=== PATIENT | female | born 2000 | race American Indian/Alaskan Native ===

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

== ENCOUNTER 2018-01-08 04:39 | Emergency (ER) | payer SELFPAY ==
[2018-01-08 04:48] VITALS: BP 108/78
--- NOTE | 2018-01-08 05:14 | XRay Report ---
FINAL REPORT EXAM: XR ANKLE 3+V RT HISTORY: fall with pain OF RT ANKLE COMPARISONS: 11/02/2017 FINDINGS: Three views right ankle Periarticular soft tissue swelling. Intact ankle mortise. Chronic ossicle at the distal aspect of the lateral malleolus measures up to 6 millimeters and is unchanged. No acute fracture. IMPRESSION: Soft tissue swelling about the right ankle without evident fracture.
--- NOTE | 2018-01-08 06:54 | Emergency Department Report ---
ED Lower Extremity HPI - General Chief Complaint: Extremity Injury, Lower Stated Complaint: RT ANKLE PAIN Time Seen by Provider: 01/08/18 06:47 Source: patient Mode of arrival: Wheelchair Limitations: Physical Limitation - History of Present Illness Initial Comments: This is a 17-year-old female states she twisted her right ankle today jumping over a water puddle states either he states he immediately pain and swelling to right lateral ankle ankle patient was however able to ambulate into easy tonight pain is 6/10 aching and tingling pain is somewhat alleviated by elevation and is exacerbated by attempted weight bearing there is no deformity no bleeding no abrasions no lacerations Complaint: ankle injury Onset/Timin -: days(s) Injury: Ankle: Right (right lateral ankle ) Type of Injury: eversion Place: home Severity: moderate Severity scale (0 -10): 5 Improves With: nothing Worsens With: weight bearing, movement, palpation Context: fall, jumping Associated Symptoms: snap/pop sensation, swelling, tingling, able to partially bear weight - Related Data Previous Rx's Medication Instructions Recorded Last Taken Type Ibuprofen [Motrin 800 MG tab] 800 mg PO Q8HR #30 tablet 11/03/17 Unknown Rx Acetaminophen [Tylenol Extra 500 mg PO QID PRN #30 tablet 12/17/17 Unknown Rx Strength] Cyclobenzaprine [Flexeril] 10 mg PO TID PRN #30 tablet 01/08/18 Unknown Rx Menthol/Camphor [[place] 1 applicatio TP TID PRN #1 tube 01/08/18 Unknown Rx Ointment] Naproxen [Naprosyn TAB] 500 mg PO BID PRN #30 tablet 01/08/18 Unknown Rx Allergies Allergy/AdvReac Type Severity Reaction Status Date / Time No Known Allergies Allergy Verified 11/02/17 22:17 ED Review of Systems ROS: Stated complaint: RT ANKLE PAIN Other details as noted in HPI Constitutional: denies: chills, fever Eyes: denies: eye pain, eye discharge, vision change ENT: denies: ear pain, throat pain Respiratory: denies: cough, shortness of breath, wheezing Cardiovascular: denies: chest pain, palpitations Endocrine: no symptoms reported Gastrointestinal: denies: abdominal pain, nausea, diarrhea Genitourinary: denies: urgency, dysuria, discharge Musculoskeletal: joint swelling Skin: as per HPI Neurological: as per HPI Psychiatric: denies: anxiety, depression Hematological/Lymphatic: denies: easy bleeding, easy bruising ED Past Medical Hx - Past Medical History Previous Medical History?: No - Surgical History Past Surgical History?: Yes Additional Surgical History: Tonsils & adenoids - Social History Smoking Status: Never Smoker Substance Use Type: None - Medications Home Medications: Home Medications Medication Instructions Recorded Confirmed Last Taken Type Ibuprofen [Motrin 800 MG tab] 800 mg PO Q8HR #30 tablet 11/03/17 Unknown Rx Acetaminophen [Tylenol Extra 500 mg PO QID PRN #30 tablet 12/17/17 Unknown Rx Strength] Cyclobenzaprine [Flexeril] 10 mg PO TID PRN #30 tablet 01/08/18 Unknown Rx Menthol/Camphor [[place] 1 applicatio TP TID PRN #1 tube 01/08/18 Unknown Rx Ointment] Naproxen [Naprosyn TAB] 500 mg PO BID PRN #30 tablet 01/08/18 Unknown Rx ED Physical Exam - General Limitations: Physical Limitation General appearance: alert, in no apparent distress - Head Head exam: Present: atraumatic, normocephalic - Eye Eye exam: Present: normal appearance - ENT ENT exam: Present: mucous membranes moist - Neck Neck exam: Present: normal inspection - Respiratory Respiratory exam: Present: normal lung sounds bilaterally. Absent: respiratory distress - Cardiovascular Cardiovascular Exam: Present: regular rate, normal rhythm. Absent: systolic murmur, diastolic murmur, rubs, gallop - GI/Abdominal GI/Abdominal exam: Present: soft, normal bowel sounds - Rectal Rectal exam: Present: deferred - Extremities Exam Extremities exam: Present: full ROM, tenderness, normal capillary refill, joint swelling. Absent: calf tenderness - Expanded Lower Extremity Exam Right Hip exam: Present: full ROM Ankle exam: Present: tenderness, swelling, anterior draw sign. Absent: abrasion , laceration, ecchymosis, deformity, crepidus, dislocation, erythema Neuro vascular tendon exam: Present: no vascular compromise, pulse deficit, abnormal cap refill, motor deficit, sensory deficit, tendon deficit, abnormal 2- point discrimination, significant pain with passive ROM of distal joint Gait: Positive: observed and limited by pain - Back Exam Back exam: Present: normal inspection, full ROM, tenderness. Absent: CVA tenderness (R), CVA tenderness (L), muscle spasm, paraspinal tenderness, vertebral tenderness - Neurological Exam Neurological exam: Present: alert, oriented X3, CN II-XII intact, reflexes normal. Absent: motor sensory deficit - Psychiatric Psychiatric exam: Present: normal affect, normal mood ED Course Vital Signs 01/08/18 04:42 Temperature 97.6 F Pulse Rate 76 Respiratory 18 Rate Blood Pressure 108/78 O2 Sat by Pulse 99 Oximetry ED Lower Extremity MDM - Radiology Data Radiology results: report reviewed, image reviewed no fracture moderate soft tissue swelling right lateral - Medical Decision Making pt for ankle stirrup, crutches, plan :naproxen flexeril tiger balm cryotherapy, follow up with pcp in 2-3 days pt verbalized agreement and understanding of discharge plan Critical care attestation.: If time is entered above; I have spent that time in minutes in the direct care of this critically ill patient, excluding procedure time. ED Disposition Clinical Impression: Right ankle sprain Qualifiers: Encounter type: initial encounter Involved ligament of ankle: unspecified ligament Qualified Code(s): S93.401A - Sprain of unspecified ligament of right ankle, initial encounter Disposition: TO HOME OR SELFCARE Is pt being admited?: No Does the pt Need Aspirin: No Condition: Stable Instructions: Osteoarthritis (ED), Ankle Stirrup Splint (ED), Ankle Sprain (ED) , Ankle Exercises (GEN) Prescriptions: Cyclobenzaprine [Flexeril] 10 mg PO TID PRN #30 tablet PRN Reason: Muscle Spasm Menthol/Camphor [[place] Ointment] 1 applicatio TP TID PRN #1 tube PRN Reason: pain Naproxen [Naprosyn TAB] 500 mg PO BID PRN #30 tablet PRN Reason: pain Referrals: [facility] [Outside] - 3-5 Days Time of Disposition: 07:05
== END 2018-01-08 07:20 | disposition home or self-care (01) ==
LOC: ED 04:39
DX: S93.401A Sprain of unspecified ligament of right ankle, initial encounter (principal); Z90.89 Acquired absence of other organs; X50.1XXA Overexertion from prolonged static or awkward postures, initial encounter; Y93.89 Activity, other specified; Y92.009 Unspecified place in unspecified non-institutional (private) residence as the place of occurrence of the external cause; Y99.8 Other external cause status
CPT/HCPCS: 99284

== ENCOUNTER 2018-08-28 12:03 | Emergency (ER) | payer SELFPAY ==
[2018-08-28 13:11] VITALS: BP 131/65
--- NOTE | 2018-08-28 13:11 | Emergency Department Report ---
Chief Complaint: Urogenital-Female Stated Complaint: VAGINAL IRRIATATION Time Seen by Provider: 08/28/18 13:08 - HPI History of Present Illness: obgyn on 9 had std test no call from ob so she thinks neg tests took diflucan vag dc and tenderness 5months dont recall over 23 weeks no abd pain or back pain no cramping previous us ok g1 mse completed MSE screening note: Focused history and physical exam performed. Due to findings the following was ordered: ED Disposition for MSE Condition: Stable
[2018-08-28 13:35] LABS: Color,Urine Yellow (Yellow)
[2018-08-28 13:36] LABS: Bacteria,Urine 1+ /HPF (Negative); Bilirubin,Urine NEG (Negative); Blood,Urine NEG (Negative); Mucus,Urine 2+ /HPF; Urobilinogen,Urine < 2.0 mg/dL (<2.0)
--- NOTE | 2018-08-28 15:45 | Emergency Department Report ---
ED Female HPI - General Chief complaint: Urogenital-Female Stated complaint: VAGINAL IRRIATATION Time Seen by Provider: 08/28/18 13:08 Source: patient Mode of arrival: Ambulatory Limitations: No Limitations - History of Present Illness Initial comments: This is a 17-year-old t approximately 20 weeks gestationwho presents to ED complaining of vaginal irritation and vaginal discharge for the past 2-3 days. Patient states that she is having some burning with urination and some lesions vaginal area. Patient denies vaginal bleeding, fever, nausea vomiting, abdominal pain MD Complaint: vaginal discharge, possible STD Quality: cramping Are you Now?: Yes - Related Data Previous Rx's Medication Instructions Recorded Last Taken Type Ibuprofen [Motrin 800 MG tab] 800 mg PO Q8HR #30 tablet 11/03/17 Unknown Rx Acetaminophen [Tylenol Extra 500 mg PO QID PRN #30 tablet 12/17/17 Unknown Rx Strength] Cyclobenzaprine [Flexeril] 10 mg PO TID PRN #30 tablet 01/08/18 Unknown Rx Menthol/Camphor [[place] 1 applicatio TP TID PRN #1 tube 01/08/18 Unknown Rx Ointment] Naproxen [Naprosyn TAB] 500 mg PO BID PRN #30 tablet 01/08/18 Unknown Rx Acyclovir [Acyclovir Ointment] 1 applicatio TP 5XD #1 tube 08/28/18 Unknown Rx Acyclovir [Zovirax Tab] 800 mg PO TID #30 tab 08/28/18 Unknown Rx Nitrofurantoin [place]/M-Cryst 100 mg PO Q12HR #14 capsule 08/28/18 Unknown Rx [Macrobid CAP] Allergies Allergy/AdvReac Type Severity Reaction Status Date / Time No Known Allergies Allergy Verified 08/28/18 12:05 ED Review of Systems ROS: Stated complaint: VAGINAL IRRIATATION Other details as noted in HPI Comment: All other systems reviewed and negative ED Past Medical Hx - Surgical History Additional Surgical History: Tonsils & adenoids - Social History Smoking Status: Never Smoker Substance Use Type: None - Medications Home Medications: Home Medications Medication Instructions Recorded Confirmed Last Taken Type Ibuprofen [Motrin 800 MG tab] 800 mg PO Q8HR #30 tablet 11/03/17 Unknown Rx Acetaminophen [Tylenol Extra 500 mg PO QID PRN #30 tablet 12/17/17 Unknown Rx Strength] Cyclobenzaprine [Flexeril] 10 mg PO TID PRN #30 tablet 01/08/18 Unknown Rx Menthol/Camphor [[place] 1 applicatio TP TID PRN #1 tube 01/08/18 Unknown Rx Ointment] Naproxen [Naprosyn TAB] 500 mg PO BID PRN #30 tablet 01/08/18 Unknown Rx Acyclovir [Acyclovir Ointment] 1 applicatio TP 5XD #1 tube 08/28/18 Unknown Rx Acyclovir [Zovirax Tab] 800 mg PO TID #30 tab 08/28/18 Unknown Rx Nitrofurantoin [place]/M-Cryst 100 mg PO Q12HR #14 capsule 08/28/18 Unknown Rx [Macrobid CAP] ED Physical Exam - General Limitations: No Limitations General appearance: alert, in no apparent distress - Head Head exam: Present: atraumatic, normocephalic - Eye Eye exam: Present: normal appearance - ENT ENT exam: Present: mucous membranes moist - Neck Neck exam: Present: normal inspection - Respiratory Respiratory exam: Present: normal lung sounds bilaterally. Absent: respiratory distress - Cardiovascular Cardiovascular Exam: Present: regular rate, normal rhythm. Absent: systolic murmur, diastolic murmur, rubs, gallop - GI/Abdominal GI/Abdominal exam: Present: soft, normal bowel sounds - External exam: Present: lesions (consistent with herpes lesion, 3 in total lesion present, one on the labia, another 2 the vulva an). Absent: bleeding Speculum exam: Present: vaginal discharge, cervical discharge Bi-manual exam: Present: normal bi-manual exam. Absent: cervical motion tendernes, uterine enlargement - Extremities Exam Extremities exam: Present: normal inspection - Back Exam Back exam: Present: normal inspection - Neurological Exam Neurological exam: Present: alert, oriented X3 - Psychiatric Psychiatric exam: Present: normal affect, normal mood - Skin Skin exam: Present: warm, dry, intact, normal color. Absent: rash ED Course Vital Signs 08/28/18 13:09 Temperature 98.2 F Pulse Rate 89 Respiratory 20 Rate Blood Pressure 131/65 O2 Sat by Pulse 99 Oximetry ED Medical Decision Making - Medical Decision Making 17-year-old female presents with full vaginitis. Herpes lesions Urinalysis positive for urinary tract infection, wet prep negative Vital signs are normal patient is not acute distress I discussed all this findings with the patient. I discussed the patient follow up with her REEXAMINER within the next week. Patient is given prescription for ACyclovir topical and oral as well as antibiotics to treat a UTI. Patient understands instructions given.. Critical care attestation.: If time is entered above; I have spent that time in minutes in the direct care of this critically ill patient, excluding procedure time. 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 Take all your medications as you've been prescribed. If you have any worsening symptoms or develop new symptoms please return to ED immediately. Prescriptions: Acyclovir [Acyclovir Ointment] 1 applicatio TP 5XD #1 tube Nitrofurantoin [place]/M-Cryst [Macrobid CAP] 100 mg PO Q12HR #14 capsule Acyclovir [Zovirax Tab] 800 mg PO TID #30 tab Referrals: PRIMARY CARE,MD [Primary Care Provider] - 3-5 Days Forms: Accompanied Note, Work/School Release Form(ED) Time of Disposition: 17:03
== END 2018-08-28 17:11 | disposition home or self-care (01) ==
LOC: ED 12:03
DX: A60.09 Herpesviral infection of other urogenital tract (principal); N39.0 Urinary tract infection, site not specified; Z90.89 Acquired absence of other organs
CPT/HCPCS: 81001; 87210; 87591

== ENCOUNTER 2019-06-24 23:35 | Emergency (ER) | payer SELFPAY ==
[2019-06-25 01:57] VITALS: BP 137/76
[2019-06-25 02:31] LABS: Basophils % (Auto) 0.4 % (0.0-1.8); Eosinophils # (Auto) 0.2 K/mm3 (0.0-0.4); Eosinophils % (Auto) 2.2 % (0.0-4.3); Hematocrit 35.3 % (30.3-42.9); Hemoglobin 11.5 gm/dl (10.1-14.3); Lymphocytes # (Auto) 2.9 K/mm3 (1.2-5.4); Mean Corpuscular HGB Conc 33 % (30-34); Mean Corpuscular Volume 82 fl (79-97); Monocytes # (Auto) 0.8 K/mm3 (0.0-0.8); Monocytes % (Auto) 8.3 % (0.0-7.3); Platelet Count 316 K/mm3 (140-440); Red Blood Count 4.29 M/mm3 (3.65-5.03); Red Cell Distribution Width 16.4 % (13.2-15.2)
[2019-06-25 02:45] LABS: Alanine Aminotransferase 10 units/L (7-56); BUN/Creatinine Ratio 18; Blood Urea Nitrogen 11 mg/dL (7-17); Calcium 9.2 mg/dL (8.4-10.2)
[2019-06-25 02:46] LABS: Albumin 3.9 g/dL (3.9-5); Hemolysis Index 0
--- NOTE | 2019-06-25 04:42 | Emergency Department Report ---
ED Female HPI - General Chief complaint: Abdominal Pain Stated complaint: DISCHARGE/ABDOMINAL PAIN/VOMITING/HEADACHE Time Seen by Provider: 06/25/19 04:34 Source: patient Mode of arrival: Ambulatory Limitations: No Limitations - History of Present Illness MD Complaint: vaginal discharge, pelvic pain, possible STD -: week(s) (1) Location: suprapubic Radiation: non-radiating Severity: mild, moderate Quality: dull Consistency: constant Improves with: none Are you Now?: No Associated Symptoms: vaginal discharge. denies: nausea/vomiting, fever/chills, loss of appetite, dysuria, hematuria, rash, syncope, weakness - Related Data Sexually active: Yes Previous Rx's Medication Instructions Recorded Last Taken Type Ibuprofen [Motrin 800 MG tab] 800 mg PO Q8HR #30 tablet 11/03/17 Unknown Rx Acetaminophen [Tylenol Extra 500 mg PO QID PRN #30 tablet 12/17/17 Unknown Rx Strength] Cyclobenzaprine [Flexeril] 10 mg PO TID PRN #30 tablet 01/08/18 Unknown Rx Menthol/Camphor [[place] 1 applicatio TP TID PRN #1 tube 01/08/18 Unknown Rx Ointment] Naproxen [Naprosyn TAB] 500 mg PO BID PRN #30 tablet 01/08/18 Unknown Rx Acyclovir [Acyclovir Ointment] 1 applicatio TP 5XD #1 tube 08/28/18 Unknown Rx Acyclovir [Zovirax Tab] 800 mg PO TID #30 tab 08/28/18 Unknown Rx Nitrofurantoin Patrick/M-Cryst 100 mg PO Q12HR #14 capsule 08/28/18 Unknown Rx [Macrobid CAP] metroNIDAZOLE [Flagyl] 500 mg PO Q12HR #20 tab 06/25/19 Unknown Rx Allergies Allergy/AdvReac Type Severity Reaction Status Date / Time No Known Allergies Allergy Verified 08/28/18 12:05 ED Review of Systems ROS: Stated complaint: DISCHARGE/ABDOMINAL PAIN/VOMITING/HEADACHE Other details as noted in HPI Comment: All other systems reviewed and negative ED Past Medical Hx - Surgical History Additional Surgical History: Tonsils & adenoids - Social History Smoking Status: Never Smoker Substance Use Type: None - Medications Home Medications: Home Medications Medication Instructions Recorded Confirmed Last Taken Type Ibuprofen [Motrin 800 MG tab] 800 mg PO Q8HR #30 tablet 11/03/17 Unknown Rx Acetaminophen [Tylenol Extra 500 mg PO QID PRN #30 tablet 12/17/17 Unknown Rx Strength] Cyclobenzaprine [Flexeril] 10 mg PO TID PRN #30 tablet 01/08/18 Unknown Rx Menthol/Camphor [[place] 1 applicatio TP TID PRN #1 tube 01/08/18 Unknown Rx Ointment] Naproxen [Naprosyn TAB] 500 mg PO BID PRN #30 tablet 01/08/18 Unknown Rx Acyclovir [Acyclovir Ointment] 1 applicatio TP 5XD #1 tube 08/28/18 Unknown Rx Acyclovir [Zovirax Tab] 800 mg PO TID #30 tab 08/28/18 Unknown Rx Nitrofurantoin Patrick/M-Cryst 100 mg PO Q12HR #14 capsule 08/28/18 Unknown Rx [Macrobid CAP] metroNIDAZOLE [Flagyl] 500 mg PO Q12HR #20 tab 06/25/19 Unknown Rx ED Physical Exam - General Limitations: No Limitations General appearance: alert, in no apparent distress - Head Head exam: Present: atraumatic, normocephalic - Eye Eye exam: Present: normal appearance, PERRL, EOMI Pupils: Present: normal accommodation - ENT ENT exam: Present: normal exam, mucous membranes moist - Neck Neck exam: Present: normal inspection - Respiratory Respiratory exam: Present: normal lung sounds bilaterally. Absent: respiratory distress, wheezes, rales, rhonchi - Cardiovascular Cardiovascular Exam: Present: regular rate, normal rhythm. Absent: systolic murmur, diastolic murmur, rubs, gallop - GI/Abdominal GI/Abdominal exam: Present: soft, normal bowel sounds. Absent: distended, tenderness, hyperactive bowel sounds, hypoactive bowel sounds - External exam: Absent: swelling Speculum exam: Present: vaginal discharge Bi-manual exam: Absent: adnexal tenderness, adnexal mass, uterine tenderness - Extremities Exam Extremities exam: Present: normal inspection, full ROM, normal capillary refill - Back Exam Back exam: Present: normal inspection. Absent: CVA tenderness (R), CVA tenderness (L) - Neurological Exam Neurological exam: Present: alert, oriented X3, CN II-XII intact - Psychiatric Psychiatric exam: Present: normal affect, normal mood - Skin Skin exam: Present: warm, dry, intact, normal color. Absent: rash ED Course Vital Signs 06/24/19 06/25/19 23:58 06:36 Temperature 99.3 F Pulse Rate 103 H 80 Respiratory 14 16 Rate Blood Pressure 137/76 O2 Sat by Pulse 99 100 Oximetry ED Medical Decision Making - Lab Data Result diagrams: 06/25/19 02:18 06/25/19 02:18 Lab Results 06/25/19 06/25/19 Range/Units 02:18 02:18 WBC 10.1 (4.5-11.0) K/mm3 RBC 4.29 (3.65-5.03) M/mm3 Hgb 11.5 (10.1-14.3) gm/dl Hct 35.3 (30.3-42.9) % MCV 82 (79-97) fl MCH 27 L (28-32) pg MCHC 33 (30-34) % RDW 16.4 H (13.2-15.2) % Plt Count 316 (140-440) K/mm3 Lymph % (Auto) 29.0 (13.4-35.0) % Patrick % (Auto) 8.3 H (0.0-7.3) % Eos % (Auto) 2.2 (0.0-4.3) % Baso % (Auto) 0.4 (0.0-1.8) % Lymph # 2.9 (1.2-5.4) K/mm3 Patrick # 0.8 (0.0-0.8) K/mm3 Eos # 0.2 (0.0-0.4) K/mm3 Baso # 0.0 (0.0-0.1) K/mm3 Seg Neutrophils % 60.1 (40.0-70.0) % Seg Neutrophils # 6.1 (1.8-7.7) K/mm3 Sodium 137 (137-145) mmol/L Potassium 3.6 (3.6-5.0) mmol/L Chloride 103.4 (98-107) mmol/L Carbon Dioxide 20 L (22-30) mmol/L Anion Gap 17 mmol/L BUN 11 (7-17) mg/dL Creatinine 0.6 L (0.7-1.2) mg/dL Estimated GFR > 60 ml/min BUN/Creatinine Ratio 18 % Glucose 80 (65-100) mg/dL Calcium 9.2 (8.4-10.2) mg/dL Total Bilirubin < 0.20 (0.1-1.2) mg/dL AST 17 (5-40) units/L ALT 10 (7-56) units/L Alkaline Phosphatase 55 (35-129) units/L Total Protein 6.6 (6.3-8.2) g/dL Albumin 3.9 (3.9-5) g/dL Albumin/Globulin Ratio 1.4 % Critical care attestation.: If time is entered above; I have spent that time in minutes in the direct care of this critically ill patient, excluding procedure time. ED Disposition Clinical Impression: Bacterial vaginal infection Disposition: TO HOME OR SELFCARE Is pt being admited?: No Does the pt Need Aspirin: No Condition: Stable Instructions: Bacterial Vaginosis (ED), Safe Sex (ED), Sexually Transmitted Diseases in Adolescents (ED), Abdominal Pain (ED) Additional Instructions: Please be advised your STD tests will result within the next 36 hours at which point time may be contacted for further intervention. We will call you for the results of the wet prep as discussed Prescriptions: metroNIDAZOLE [Flagyl] 500 mg PO Q12HR #20 tab Referrals: PRIMARY CARE, [Primary Care Provider] - 3-5 Days [facility] [Provider Group] - 3-5 Days Forms: STI Treatment and Prevention
== END 2019-06-25 06:36 | disposition home or self-care (01) ==
LOC: ED 23:35
DX: N76.0 Acute vaginitis (principal)
CPT/HCPCS: 36415; 80053; 85025; 87210; 87591; 99284